=== PATIENT | female | born 1995 | race American Indian/Alaskan Native ===

== ENCOUNTER 2020-09-10 03:19 | Inpatient (IN) | payer MEDICAID ==
[2020-09-10] MEDS ORDERED: ePHEDrine SULFATE 50 MG/1 ML INJ IV PRN (04:29)
[2020-09-10] MEDS ORDERED: LIDOCAINE (2%) 20 MG/1 ML VIAL 20 ML MDV INFILTRATI ONE ×2 (04:29→10:23)
[2020-09-10] MEDS ORDERED: MINERAL OIL 30 ML ORAL LIQD PO PRN (04:29)
[2020-09-10] MEDS ORDERED: TERBUTALINE 1 MG/1 ML INJ SUB-Q PRN (04:29)
[2020-09-10] MEDS ORDERED: AMPICILLIN/NS 2 GM/100 ML 2 GM/100 ML BAG IV ONE (04:29)
--- NOTE | 2020-09-10 04:36 | History and Physical Report ---
History of Present Illness Date of examination: 09/10/20 Date of admission: 09/10/2020 Chief complaint: Contractions History of present illness: 25 year old presents in active labor. Patient received care at [facility] and records are available. LMP 12/02/2019. EDC 09/08/2020 (based on LMP and confirmed by 4 week, 4 day US). EGA 40 weeks, 5 days gestation. significant for the following: maternal obesity and possible alpha- thalassemia trait, elevated hemoglobin A1C (5.7%). labs are as follows: O+, antibody screen negative, rubella immune, HIV nonreactive, RPR nonreactive, hepatitis B surface antigen negative, hepatitis C antibody negative, chlamydia negative, gonorrhea negative, trichomonas negative, 1 hour sugar test 89, AFP negative, GBS negative, pap smear negative, urine culture negative, hemoglobin A1C 5.7%. Past History Past Medical History: other (obesity, hemoglobin A1C in prediabetes range (5.7%)) Past Surgical History: other (cosmetic surgery) MUSEUM GUIDE History: denies: abnormal PAP smear, chlamydia, gonorrhea, hepatitis B, hepatitis C, herpes, HIV, syphilis, trichomonas Family/Genetic History: diabetes, heart disease, other (asthma) Social history: lives with family, full code. denies: smoking, alcohol abuse, prescription drug abuse, IV drug use - Obstetrical History Expected Date of Delivery: 09/08/20 Actual Gestation: 40 Week(s) 2 Day(s) : 1 Para: 0 Hx # Term Pregnancies: 0 Number of Pregnancies: 0 Spontaneous Abortions: 0 Induced : 0 Number of Living Children: 0 Medications and Allergies Allergies Allergy/AdvReac Type Severity Reaction Status Date / Time No Known Allergies Allergy Unverified 02/08/16 15:14 Home Medications Medication Instructions Recorded Confirmed Last Taken Type No Known Home Medications [No 02/08/16 02/08/16 Unknown History Reported Home Medications] Active Meds: Active Medications Ephedrine Sulfate (Ephedrine Sulfate 50 Mg/1 Ml Inj) 10 mg IV Q2M PRN PRN Reason: Hypotension Fentanyl (Fentanyl 100 Mcg/2 Ml Inj) 100 mcg IV Q2H PRN PRN Reason: Pain,Severe (7-10) LABOR PAIN Lactated Ringer's (Lactated Ringers) 1,000 mls @ 125 mls/hr IV DIRECT FLORIDALMA Oxytocin/Sodium Chloride (Pitocin/Ns 30 Unit/500ml) 30 units in 500 mls @ 40 mls/hr IV TITR FLORIDALMA; Protocol Ampicillin Sodium (Ampicillin/Ns 2 Gm/100 Ml) 2 gm in 100 mls @ 100 mls/hr IV ONCE ONE; Protocol Stop: 09/10/20 05:28 Ampicillin Sodium (Ampicillin/Ns 1 Gm/50 Ml) 1 gm in 50 mls @ 100 mls/hr IV Q4H [facility]; Protocol Lidocaine (Lidocaine (2%) 20 Mg/1 Ml Vial 20 Ml Mdv) 20 ml INFILTRATI ONCE ONE Stop: 09/10/20 04:30 Mineral Oil (Mineral Oil 30 Ml Oral Liqd) 30 ml PO QHS PRN PRN Reason: Constipation Terbutaline Sulfate (Terbutaline 1 Mg/1 Ml Inj) 0.25 mg SUB-Q ONCE PRN PRN Reason: Hyperstimulation/Hypertonicity Review of Systems All systems: negative (contractions) - Vital Signs Vital signs: Vital Signs Pulse BP 111 H 132/81 09/10/20 03:34 09/10/20 03:34 Temp Pulse Resp BP Pulse Ox 99.1 F 111 H 20 132/81 97 09/10/20 03:35 09/10/20 04:30 09/10/20 03:35 09/10/20 03:34 09/10/20 04:30 - Physical Exam Abdomen: Positive: normal appearance, soft. Negative: distention, tenderness, guarding, rigidity Genitourinary (Female): Positive: normal external genitalia, normal perenium. Negative: perineal/vulvar lesions Vagina: Positive: normal moisture Uterus: Positive: enlarged. Negative: tender Anus/Rectum: Positive: normal perianal skin Extremities: Positive: normal. Negative: tenderness, edema - Obstetrical FHR: category 1 Uterine Contraction Monitor Mode: External Cervical Dilatation: 6.5 Cervical Effacement Percentage: 90 (BBOW) station: -1 Uterine Contraction Pattern: Regular Uterine Contraction Intensity: Moderate Results All other labs normal. Assessment and Plan A: at 40 weeks, 2 days gestation. Active labor. GBS negative. P: Admit. EFM. Anticipate vaginal .
[2020-09-10] MEDS ORDERED: OXYTOCIN DRIP 30 UNITS/500 ML BAG IV SCH (05:00)
[2020-09-10 05:19] LABS: Hematocrit 40.8 % (30.3-42.9); Mean Corpuscular HGB Conc 32 % (30-34); Mean Corpuscular Volume 76 fl (79-97); Platelet Count 200 K/mm3 (140-440); Red Blood Count 5.39 M/mm3 (3.65-5.03)
[2020-09-10] MEDS: LACTATED RINGERS 1,000 ML IV SCH (05:36)
[2020-09-10] MEDS: fentaNYL 100 MCG/2 ML INJ IV PRN ×3 (05:36→10:27)
[2020-09-10] MEDS ORDERED: AMPICILLIN/NS 1 GM/50 ML 1 GM/50 ML BAG IV SCH (09:00)
[2020-09-10] MEDS ORDERED: WITCH HAZEL/ GLYCERIN PAD TP PRN (11:47)
[2020-09-10] MEDS ORDERED: MAGNESIUM HYDROXIDE (MOM) ORAL LIQD UDC PO PRN (11:47)
[2020-09-10] MEDS ORDERED: HYDROcodone/ACETAMINOPHEN 5-325 MG TAB PO PRN (11:47)
[2020-09-10] MEDS ORDERED: LANOLIN/ZINC/DIMETHICONE (LANSINOH) 7 GM TP PRN (11:47)
--- NOTE | 2020-09-10 11:49 | Procedure Note ---
OB Delivery Note - Delivery Date of Delivery: 09/10/20 Surgeon: BOY DILLON Estimated blood loss: other (350 cc) - Vaginal Delivery presentation: vertex Delivery position: OA Intrapartum events: none Delivery induction: none Delivery monitor: external FHT, external uterine Route of delivery: Delivery placenta: spontaneous Delivery cord: 3 umbilical vessels Episiotomy: none Delivery laceration: 1st degree, 2nd degree Delivery repair: vicryl Anesthesia: local Delivery comments: Spontaneous vaginal delivery at 10:18 of liveborn female infant weighing 7 lb. 11 oz. over 2nd degree perineal laceration with apgars of 6/8. of baby was atraumatic; no nuchal cord. Baby placed skin to skin with mom immediately after delivery and dried, stimulated, and suctioned with bulb syringe. Spontaneous cry and respirations. Baby needed further suctioning so 3 vessel cord was double clamped and cut and baby was taken to radiant warmer for further suctioning and evaluation. Cord blood obtained. Spontaneous delivery of intact placenta and membranes by carlson mechanism at 10:22. EBL 350 cc. Pitocin to IV fluids after delivery of placenta. Fundus firm and midline. 2nd degree perineal laceration and first degree left labial laceration repaired with 2-0 vicryl; Lidocaine local used. No other lacerations noted. Vaginal sweep negative. Sponge and instrument counts correct. Mother and baby stable.
[2020-09-10] MEDS: IBUPROFEN 600 MG TAB PO SCH ×2 (12:55→21:15)
[2020-09-10] MEDS ORDERED: BENZOCAINE/MENTHOL 20/0.5% TOP SPRAY 56 GM TP PRN (14:45)
[2020-09-10] MEDS ORDERED: BENZOCAINE/MENTHOL 20/0.5% TOP SPRAY 56 GM TP ONE (14:46)
[2020-09-10] MEDS: DOCUSATE SODIUM 100 MG CAP PO SCH ×2 (15:50→21:14)
[2020-09-10 16:17] LABS: Hematocrit 35.4 % (30.3-42.9); Hemoglobin 11.2 gm/dl (10.1-14.3)
[2020-09-10] MEDS ORDERED: LACTATED RINGERS 250 ML IV ONE (17:34)
[2020-09-10] MEDS: FERROUS SULFATE 325 MG TAB PO SCH ×2 (18:43→21:14)
[2020-09-10 18:45] LABS: Bilirubin,Urine NEG (Negative); Blood,Urine LG (Negative); Color,Urine Red (Yellow); Mucus,Urine FEW /HPF; Urobilinogen,Urine < 2.0 mg/dL (<2.0)
[2020-09-10 18:47] LABS: RBC,Urine > 182.0 /HPF (0.0-6.0)
[2020-09-10 18:50] LABS: Basophils % (Auto) 0.1 % (0.0-1.8); Eosinophils % (Auto) 0.1 % (0.0-4.3); Hemoglobin 10.4 gm/dl (10.1-14.3); Lymphocytes # (Auto) 2.3 K/mm3 (1.2-5.4); Lymphocytes % (Auto) 13.9 % (13.4-35.0); Mean Corpuscular HGB Conc 32 % (30-34); Mean Corpuscular Volume 76 fl (79-97); Monocytes # (Auto) 1.4 K/mm3 (0.0-0.8); Monocytes % (Auto) 8.4 % (0.0-7.3); Platelet Count 155 K/mm3 (140-440); Red Blood Count 4.32 M/mm3 (3.65-5.03); Red Cell Distribution Width 14.8 % (13.2-15.2)
[2020-09-10] MEDS ORDERED: GENTAMICIN IV SCH (20:15)
[2020-09-10] MEDS ORDERED: SODIUM CHLORIDE 0.9% IV SCH (20:15)
--- NOTE | 2020-09-10 20:22 | Event Note ---
Date: 09/10/20 EKG showed left bundle branch block. Hospitalist and cardiology consults ordered. Spoke with patient about this. She states that earlier in her she has palpitations but not any time recently. Denies any history of heart problems. Ampicillin and Gentamicin ordered for possible chorioamnionitis. Consulted with Dr. Monae re: all of the above.
[2020-09-10] MEDS: AMPICILLIN/NS 2 GM/100 ML 2 GM/100 ML BAG IV SCH (21:14)
[2020-09-11] MEDS: GENTAMICIN/NS 80 MG/100 ML 100 ML IV SCH ×3 (00:09→14:38)
[2020-09-11] MEDS: AMPICILLIN/NS 2 GM/100 ML 2 GM/100 ML BAG IV SCH ×3 (04:18→16:33)
--- NOTE | 2020-09-11 09:57 | History and Physical Report ---
History of Present Illness Date of examination: 09/10/20 Date of admission: 09/10/20 04:29 Chief complaint: Abnormal EKG--IVCD History of present illness: Is asked to consult because of abnormal EKG which showed intraventricular conduction delay. Patient does not have any chest pain or shortness of breath. Patient had no prior EKGs are is aware of prior EKGs. Patient lying in bed and talking well. No symptoms of chest pain shortness of breath cough tenderness etc. No exposure to coronavirus. Past History Social history: lives with family, full code. denies: smoking, alcohol abuse, prescription drug abuse, IV drug use Medications and Allergies Allergies Allergy/AdvReac Type Severity Reaction Status Date / Time No Known Allergies Allergy Unverified 02/08/16 15:14 Home Medications Medication Instructions Recorded Confirmed Last Taken Type No Known Home Medications [No 02/08/16 09/10/20 Unknown History Reported Home Medications] Active Meds: Active Medications Hydrocodone Bitart/Acetaminophen (Hydrocodone/Acetaminophen 5-325 Mg Tab) 2 each PO Q6H PRN PRN Reason: Pain, Moderate (4-6) Last Admin: 09/10/20 15:50 Dose: 2 each Documented by: Benzocaine/Menthol (Benzocaine/Menthol 20/0.5% Top [place] 56 Gm) 1 spray TP TID PRN PRN Reason: Episiotomy Pain Docusate Sodium (Docusate Sodium 100 Mg Cap) 100 mg PO BID [facility] Last Admin: 09/10/20 21:14 Dose: 100 mg Documented by: Ferrous Sulfate (Ferrous Sulfate 325 Mg Tab) 325 mg PO BID [facility] Last Admin: 09/10/20 21:14 Dose: 325 mg Documented by: Ampicillin Sodium (Ampicillin/Ns 2 Gm/100 Ml) 2 gm in 100 mls @ 100 mls/hr IV Q6H [facility]; Protocol Last Admin: 09/11/20 04:18 Dose: 100 mls/hr Documented by: Gentamicin Sulfate/Sodium Chloride (Gentamicin/Ns 80 Mg/100 Ml) 100 mls @ 200 mls/hr IV Q8HR [facility] Last Admin: 09/11/20 06:26 Dose: 200 mls/hr Documented by: Ibuprofen (Ibuprofen 600 Mg Tab) 600 mg PO Q6H [facility] Last Admin: 09/10/20 21:15 Dose: 600 mg Documented by: Magnesium Hydroxide (Magnesium Hydroxide (Mom) Oral Liqd Udc) 30 ml PO HS PRN PRN Reason: Constipation Multi-Ingredient Ointment (Lanolin/Zinc/Dimethicone (Lansinoh) 7 Gm) 1 applic TP PRN PRN PRN Reason: Sore Nipples Multivitamins/Iron/Calcium ( Ymx15-Fr Fumarate-Folic Acid Vit Tab) 1 each PO QDAY FLORIDALMA Sodium Chloride (Sodium Chloride 0.9% 10 Ml Flush Syringe) 10 ml IV PRN NR Stop: 09/11/20 11:59 Witch Yola/Glycerin (Witch Yola/ Glycerin Pad) 1 each TP PRN PRN PRN Reason: Hemorrhoid/cleansing/soothing Exam - Constitutional Vitals: Temp Pulse Resp BP Pulse Ox 97.9 F 104 H 18 124/67 99 09/11/20 08:20 09/11/20 08:20 09/11/20 08:20 09/11/20 08:20 09/11/20 08:20 General appearance: Present: no acute distress, well-nourished - EENT Eyes: Present: PERRL ENT: hearing intact, clear oral mucosa - Neck Neck: Present: supple, normal ROM - Respiratory Respiratory effort: normal Respiratory: bilateral: CTA - Cardiovascular Heart rate: 68 Rhythm: regular Heart Sounds: Present: S1 & S2. Absent: rub, click - Extremities Extremities: pulses symmetrical, No edema Peripheral Pulses: within normal limits - Abdominal General gastrointestinal: Present: soft, non-tender, non-distended, normal bowel sounds Female genitourinary: Present: normal - Integumentary Integumentary: Present: clear, warm, dry - Musculoskeletal Musculoskeletal: gait normal, strength equal bilaterally - Psychiatric Psychiatric: appropriate mood/affect, intact judgment & insight - Neurologic Neurologic: CNII-XII intact, moves all extremities HEART Score - HEART Score History: Slightly suspicious EKG: Non-specific Age: < 45 Risk factors: No known risk factors Troponin: < normal limit HEART Score: 1 - Critical Actions Critical Actions: 0-3 pts:0.9-1.7%risk of adverse cardiac event.Candidate for discharge Results - Labs CBC & Chem 7: 09/10/20 18:34 Labs: Laboratory Last Values WBC 16.2 K/mm3 (4.5-11.0) H 09/10/20 18:34 RBC 4.32 M/mm3 (3.65-5.03) 09/10/20 18:34 Hgb 10.4 gm/dl (10.1-14.3) 09/10/20 18:34 Hct 33.0 % (30.3-42.9) 09/10/20 18:34 MCV 76 fl (79-97) L 09/10/20 18:34 MCH 24 pg (28-32) L 09/10/20 18: MCHC 32 % (30-34) 09/10/20 18:34 RDW 14.8 % (13.2-15.2) 09/10/20 18:34 Plt Count 155 K/mm3 (140-440) 09/10/20 18:34 Lymph % (Auto) 13.9 % (13.4-35.0) 09/10/20 18:34 [place] % (Auto) 8.4 % (0.0-7.3) H 09/10/20 18:34 Eos % (Auto) 0.1 % (0.0-4.3) 09/10/20 18:34 Baso % (Auto) 0.1 % (0.0-1.8) 09/10/20 18:34 Lymph # (Auto) 2.3 K/mm3 (1.2-5.4) 09/10/20 18:34 [place] # (Auto) 1.4 K/mm3 (0.0-0.8) H 09/10/20 18:34 Eos # (Auto) 0.0 K/mm3 (0.0-0.4) 09/10/20 18: Baso # (Auto) 0.0 K/mm3 (0.0-0.1) 09/10/20 18:34 Seg Neutrophils % 77.5 % (40.0-70.0) H 09/10/20: Seg Neutrophils # 12.5 K/mm3 (1.8-7.7) H 09/10/20 18:34 Urine Color Red (Yellow) 09/10/20 18:15 Urine Turbidity Slightly-cloudy (Clear) 09/10/20 18: Urine pH 5.0 (5.0-7.0) 09/10/20 18: Ur Specific [place] 1.018 (1.003-1.030) 09/10/20 18:15 Urine Protein 100 mg/dl mg/dL (Negative) 09/10/20 18:15 Urine Glucose (UA) 50 mg/dL (Negative) 09/10/20 18:15 Urine Ketones Tr mg/dL (Negative) 09/10/20 18:15 Urine Blood Lg (Negative) 09/10/20 18:15 Urine Nitrite Neg (Negative) 09/10/20 18:15 Urine Bilirubin Neg (Negative) 09/10/20 18:15 Urine Urobilinogen < 2.0 mg/dL (<2.0) 09/10/20 18:15 Ur Leukocyte Esterase Mod (Negative) 09/10/20 18:15 Urine WBC (Auto) 64.0 /HPF (0.0-6.0) H 09/10/20 18:15 Urine RBC (Auto) > 182.0 /HPF (0.0-6.0) 09/10/20 18:15 U Epithel Cells (Auto) 2.0 /HPF (0-13.0) 09/10/20 18:15 Urine Mucus Few /HPF 09/10/20 18:15 Coronavirus (PCR) Negative (Negative) 09/10/20 08:30 Blood Type O POSITIVE 09/10/20 04:45 Antibody Screen Negative 09/10/20 04:45 - Imaging and Cardiology EKG: report reviewed (IVCD) Trinh/IV: IV Catheter Type [Right Hand] Peripheral IV Assessment and Plan Advance Directives: Yes (yes) VTE prophylaxis?: Chemical Plan of care discussed with patient/family: Yes - Patient Problems (1) IVCD (intraventricular conduction defect) Current Visit: Yes Status: Chronic Plan to address problem: Possibly chronic and congenital Asked Cardiology for second opinion
[2020-09-11] MEDS: DOCUSATE SODIUM 100 MG CAP PO SCH ×2 (10:10→22:13)
[2020-09-11] MEDS: FERROUS SULFATE 325 MG TAB PO SCH ×2 (10:10→22:13)
[2020-09-11] MEDS: PRENATAL VIT27-FE FUMARATE-FOLIC ACID VIT TAB PO SCH (10:21)
[2020-09-11] MEDS: LACTATED RINGERS 1,000 ML IV SCH (10:22)
--- NOTE | 2020-09-11 11:19 | Consultation ---
History of Present Illness Consult date: 09/11/20 Requesting physician: RYAN GARNETT Consult reason: other (Abnormal EKG) History of present illness: Patient is a 25-year-old with uneventful delivery yesterday. Patient was noted to be tachycardic and had an EKG done. EKG revealed left bundle branch block. Repeat EKG this morning also revealed left bundle branch block. Cardiology is being asked to evaluate the patient in view of the left bundle branch block. Patient reports no prior cardiac history. No significant family history. Fairly healthy 25-year-old with no significant cardiac risk factors. Reports normal with no excessive shortness of breath edema chest pain or palpitations. No history of smoking alcohol or recreational drug use. Past History Past Medical History: No medical history Social history: lives with family, full code. denies: smoking, alcohol abuse, prescription drug abuse, IV drug use Medications and Allergies Allergies Allergy/AdvReac Type Severity Reaction Status Date / Time No Known Allergies Allergy Unverified 02/08/16 15:14 Home Medications Medication Instructions Recorded Confirmed Last Taken Type No Known Home Medications [No 02/08/16 09/10/20 Unknown History Reported Home Medications] Active Meds: Active Medications Hydrocodone Bitart/Acetaminophen (Hydrocodone/Acetaminophen 5-325 Mg Tab) 2 each PO Q6H PRN PRN Reason: Pain, Moderate (4-6) Last Admin: 09/10/20 15:50 Dose: 2 each Documented by: Benzocaine/Menthol (Benzocaine/Menthol 20/0.5% Top [place] 56 Gm) 1 spray TP TID PRN PRN Reason: Episiotomy Pain Docusate Sodium (Docusate Sodium 100 Mg Cap) 100 mg PO BID [facility] Last Admin: 09/11/20 10:10 Dose: 100 mg Documented by: Ferrous Sulfate (Ferrous Sulfate 325 Mg Tab) 325 mg PO BID [facility] Last Admin: 09/11/20 10:10 Dose: 325 mg Documented by: Ampicillin Sodium (Ampicillin/Ns 2 Gm/100 Ml) 2 gm in 100 mls @ 100 mls/hr IV Q6H [facility]; Protocol Last Admin: 09/11/20 10:10 Dose: 100 mls/hr Documented by: Gentamicin Sulfate/Sodium Chloride (Gentamicin/Ns 80 Mg/100 Ml) 100 mls @ 200 mls/hr IV Q8HR [facility] Last Admin: 09/11/20 06:26 Dose: 200 mls/hr Documented by: Ibuprofen (Ibuprofen 600 Mg Tab) 600 mg PO Q6H [facility] Last Admin: 09/10/20 21:15 Dose: 600 mg Documented by: Magnesium Hydroxide (Magnesium Hydroxide (Mom) Oral Liqd Udc) 30 ml PO HS PRN PRN Reason: Constipation Multi-Ingredient Ointment (Lanolin/Zinc/Dimethicone (Lansinoh) 7 Gm) 1 applic TP PRN PRN PRN Reason: Sore Nipples Multivitamins/Iron/Calcium ( Zhm43-To Fumarate-Folic Acid Vit Tab) 1 each PO QDAY [facility] Last Admin: 09/11/20 10:21 Dose: Not Given Documented by: Sodium Chloride (Sodium Chloride 0.9% 10 Ml Flush Syringe) 10 ml IV PRN NR Stop: 09/11/20 11:59 Witch Yola/Glycerin (Witch Yola/ Glycerin Pad) 1 each TP PRN PRN PRN Reason: Hemorrhoid/cleansing/soothing Review of Systems All systems: negative (Except as mentioned in H&P) Physical Examination Vital Signs Pulse BP 111 H 132/81 09/10/20 03:34 09/10/20 03:34 General appearance: obese HEENT: Positive: Normocephaly Neck: Positive: neck supple Cardiac: Positive: Reg Rate and Rhythm Lungs: Positive: clear to auscultation Neuro: Positive: Grossly Intact Abdomen: Positive: Unremarkable Female genitourinary: deferred Skin: Positive: Clear Results 09/10/20 18:34 CBC 09/10/20 09/10/20 Range/Units 15:42 18:34 WBC 16.2 H (4.5-11.0) K/mm3 RBC 4.32 (3.65-5.03) M/mm3 Hgb 11.2 10.4 (10.1-14.3) gm/dl Hct 35.4 33.0 (30.3-42.9) % Plt Count 155 (140-440) K/mm3 Lymph # (Auto) 2.3 (1.2-5.4) K/mm3 [place] # (Auto) 1.4 H (0.0-0.8) K/mm3 Eos # (Auto) 0.0 (0.0-0.4) K/mm3 Baso # (Auto) 0.0 (0.0-0.1) K/mm3 EKG interpretations - Telemetry EKG Rhythm: Sinus Rhythm (Left bundle branch block) Assessment and Plan Impression: 1. Status post uneventful delivery 2. Tachycardia in the setting of childbirth significantly improved 3. Abnormal EKG new left bundle branch block patient completely asymptomatic Plan: Likely left bundle branch block is old. Patient has no cardiac risk factors. Will proceed with 2D echo to evaluate for peripartum cardiomyopathy. If echo is normal patient can be discharged home from cardiac standpoint and outpatient follow-up
[2020-09-11] MEDS: IBUPROFEN 600 MG TAB PO SCH ×4 (15:39→23:25)
--- NOTE | 2020-09-11 16:30 | Progress Note ---
Assessment and Plan A: day 1 S/P . Anemia. Abnormal EKG. P: Patient was seen by hospitalist and flying squad salesperson today. Supplement with iron. Anticipate possible discharge home tomorrow if patient continues to do well. Subjective - Subjective Date of service: 09/11/20 Principal diagnosis: day 1 S/P Interval history: Was seen by hospitalist and cardiolgist. Patient reports: appetite normal, voiding normally, pain well controlled, flatus, ambulating normally, no dizzy ambulation, no nauseated [place]: doing well Objective - Vital Signs Latest vital signs: Vital Signs Temp Pulse Resp BP BP Pulse Ox 09/11/20 08:20 97.9 F 104 H 18 124/67 99 09/11/20 00:34 98.4 F 102 H 20 96/55 98 09/10/20 21:15 20 09/10/20 20:52 98.7 F 110 H 20 109/70 99 Intake and Output 09/11/20 09/11/20 09/11/20 07:59 15:59 23:59 Intake Total 660 Output Total 800 Balance 660 -800 Intake: IV 300 AMPICILLIN/NS 2 GM/100 ML 100 2 gm In 100 ml @ 100 mls /hr IV Q6H [facility] Rx#: [id number] Gentamicin/Ns 80 mg/100 200 ml 100 ml @ 200 mls/hr IV Q8HR [facility] Rx#:[id number] Intake, Free Water 360 Output: Urine 800 Void 800 Other: Total, Output Amount 800 # Voids Void 1 - Exam Abdomen: Present: normal appearance, soft. Absent: distention, tenderness, guarding, rigidity Uterus: Present: normal, firm, fundal height below umbilicus. Absent: bogginess, tenderness Extremities: Present: normal. Absent: tenderness, edema - Labs Labs: Abnormal lab results 09/10/20 09/10/20 Range/Units 18:15 18:34 WBC 16.2 H (4.5-11.0) K/mm3 MCV 76 L (79-97) fl MCH 24 L (28-32) pg [place] % (Auto) 8.4 H (0.0-7.3) % [place] # (Auto) 1.4 H (0.0-0.8) K/mm3 Seg Neutrophils % 77.5 H (40.0-70.0) % Seg Neutrophils # 12.5 H (1.8-7.7) K/mm3 Urine WBC (Auto) 64.0 H (0.0-6.0) /HPF
--- NOTE | 2020-09-11 19:46 | Progress Note ---
Assessment and Plan - Patient Problems (1) IVCD (intraventricular conduction defect) Current Visit: Yes Status: Chronic Plan to address problem: Possibly chronic Cardiology consult appreciated Echo pending Subjective Date of service: 09/11/20 Principal diagnosis: day 1 S/P Interval history: Asymptomatic Objective - Constitutional Vitals: Vital Signs - 12hr 09/11/20 09/11/20 08:20 16:45 Temperature 97.9 F 97.9 F Pulse Rate 104 H 92 H Respiratory 18 18 Rate Blood Pressure 124/67 109/70 [Left] O2 Sat by Pulse 99 98 Oximetry General appearance: Present: no acute distress, well-nourished - EENT Eyes: PERRL, EOM intact ENT: hearing intact, clear oral mucosa Ears: bilateral: normal - Neck Neck: supple, normal ROM - Respiratory Respiratory effort: normal Respiratory: bilateral: CTA - Breasts Breasts: normal - Cardiovascular Heart rate: 78 Rhythm: regular Heart Sounds: Present: S1 & S2. Absent: gallop, rub Extremities: pulses intact, No edema, normal color, Full ROM - Gastrointestinal General gastrointestinal: Present: soft, non-tender, non-distended, normal bowel sounds - Genitourinary Female genitourinary: normal - Integumentary Integumentary: clear, warm, dry - Musculoskeletal Musculoskeletal: 1, strength equal bilaterally - Neurologic Neurologic: moves all extremities - Psychiatric Psychiatric: memory intact, appropriate mood/affect, intact judgment & insight - Labs CBC & Chem 7: 09/10/20 18:34 HEART Score - HEART Score EKG: Non-specific Age: < 45 Risk factors: No known risk factors Troponin: < normal limit - Critical Actions Critical Actions: 0-3 pts:0.9-1.7%risk of adverse cardiac event.Candidate for discharge
[2020-09-11 20:08] LABS: Alanine Aminotransferase 12 units/L (7-56); Albumin 3.2 g/dL (3.9-5); Blood Urea Nitrogen 8 mg/dL (7-17); Calcium 8.8 mg/dL (8.4-10.2); Hemolysis Index 4
[2020-09-11 20:18] LABS: BUN/Creatinine Ratio 11
[2020-09-12] MEDS: IBUPROFEN 600 MG TAB PO SCH ×2 (05:54→15:54)
--- NOTE | 2020-09-12 07:19 | Progress Note ---
Assessment and Plan A: day 2 S/P . Anemia. P: Discharge patient home today. Discussed with patient discharge instructions and warning signs. Advised patient to continue taking her vitamins and iron supplements at home. Advised patient to avoid intercourse, lifting, housework. Advised patient to follow up with cardiology in 2 weeks as recommended by hospitalist. Advised patient to follow up at [facility] in 6 weeks for exam. Patient voiced understanding of all instructions. Patient seen by José Miguel Bro CNM. Subjective - Subjective Date of service: 09/19/20 Principal diagnosis: day 2 S/P Interval history: Was cleared for discharge by hospitalist and by Dr. Monae. Patient denies chest pain, shortness of breath, cough, leg pain, heavy bleeding, or any other problems. Patient reports: appetite normal, voiding normally, pain well controlled, flatus, ambulating normally, no dizzy ambulation, no nauseated : doing well Objective - Vital Signs Latest vital signs: Vital Signs Temp Pulse Resp BP BP Pulse Ox 09/12/20 00:53 98.1 F 95 H 20 107/70 100 09/11/20 16:45 97.9 F 92 H 18 109/70 98 09/11/20 08:20 97.9 F 104 H 18 124/67 99 Intake and Output 09/11/20 09/11/20 09/12/20 15:59 23:59 07:59 Intake Total 100 480 Output Total 800 Balance -700 480 Intake: IV 100 AMPICILLIN/NS 2 GM/100 ML 100 2 gm In 100 ml @ 100 mls /hr IV Q6H [facility] Rx#: [id number] Oral 480 Output: Urine 800 Void 800 Other: Total, Intake Amount 480 Total, Output Amount 800 # Voids Void 1 - Exam Cardiovascular: Present: Regular rate Lungs: Present: Clear to auscultation Abdomen: Present: normal appearance, soft. Absent: distention, tenderness, guarding, rigidity Uterus: Present: normal, firm, fundal height below umbilicus. Absent: bogginess, tenderness Extremities: Present: normal. Absent: tenderness, edema - Labs Labs: Abnormal lab results 09/11/20 Range/Units 19:09 Alkaline Phosphatase 131 H (35-129) units/L Total Protein 5.5 L (6.3-8.2) g/dL Albumin 3.2 L (3.9-5) g/dL
--- NOTE | 2020-09-12 07:23 | Discharge Summary ---
Providers - Providers Date of Admission: 09/10/20 04:29 Date of discharge: 09/12/20 Attending physician: CHARITO COHEN 09/10/20 20:27 Consult to Cardiology [CONS] Routine Consulting Provider: Reason For Exam: tachycardia; abnormal EKG; 09/10/20 22:29 Consult to Physician [CONS] Urgent Comment: Consulting Provider: RYAN GARNETT Physician Instructions: Reason For Exam: abnormal ekg, tachycardia, 09/11/20 08:00 Consult to Cardiology [CONS] Routine Consulting Provider: FAREED ABBASI Reason For Exam: IVCD Primary care physician: CHARITO COHEN Hospitalization Reason for admission: active labor Delivery: Laceration: 1st degree, 2nd degree Other procedures: none complications: other (Abnormal EKG (seen by hospitalist and process lead and will also follow up outpatient)) Discharge diagnosis: IUP at term delivered baby: female Pertinent studies: Labs Hospital course: Stable hospital course Condition at discharge: Good Disposition: DC-01 TO HOME OR SELFCARE - Discharge Diagnoses (1) Term delivered Status: Acute (2) Anemia Status: Acute Plan - Provider Discharge Summary Activity: routine, no sex for 6 weeks, no heavy lifting 4 weeks, no strenuous exercise Diet: routine Instructions: routine Additional instructions: Continue taking your vitamins and iron supplements at home. Follow up with process lead in 2 weeks. Follow up at [facility] in 6 weeks. Call your doctor immediately for: * Fever > 100.5 * Heavy vaginal bleeding ( >1 pad per hour) * Severe persistent headache * Shortness of breath * Reddened, hot, painful area to leg or breast - Follow up plan Follow up: CHARITO COHEN MD [Primary Care Provider] - 6 Weeks
[2020-09-12] MEDS ORDERED: SPIRONOLACTONE 25 MG TAB PO SCH (12:00)
[2020-09-12] MEDS ORDERED: ASPIRIN EC 81 MG TAB PO SCH (12:00)
[2020-09-12] MEDS ORDERED: carvediloL 3.125 MG TAB PO SCH (12:00)
[2020-09-12] MEDS ORDERED: LISINOPRIL 5 MG TAB PO SCH (12:00)
--- NOTE | 2020-09-12 12:07 | Progress Note ---
Assessment and Plan - Patient Problems (1) Peripartum cardiomyopathy Current Visit: Yes Status: Acute Plan to address problem: 25-year-old woman who just completed her first , EKG was done due to the presence of persistent sinus tachycardia. ECG revealed a left bundle branch block of uncertain chronicity. Echocardiogram shows a dilated cardiomyopathy with severe left ventricular systolic ejection fraction of 30 to 35%. Patient reports no hypertension, shortness of breath or lower extremity edema during the . She reports no prior cardiac history. Findings consistent with new systolic heart failure due to likely prepartum ca rdiomyopathy. Recommendations: 1. Lisinopril 2.5 mg daily, carvedilol 3.125 mg twice daily, spironolactone 25 mg daily, and aspirin 81 mg daily. 2. Patient is stable for discharge on these medications, cardiac outpatient follow-up in 1 week. 3. Patient advised in the presence of the nurse and her significant other who is at bedside, that breast-feeding is not recommended while she is taking the heart failure medications listed. 4. Patient is also strongly recommended against planning any future pregnancies in the setting of diagnosis of peripartum cardiomyopathy. Subjective Date of service: 09/12/20 Principal diagnosis: day 2 S/P Interval history: The patient is comfortable on bedrest, no chest pain, no shortness of breath, no lower extremity edema. Vital signs show a heart rate of 92, sinus rhythm, blood pressure 110 systolic. Echocardiogram shows a severe cardiomyopathy with left ventricular ejection fraction 30 to 35%. Objective Vital Signs Temp Pulse Resp BP BP Pulse Ox 09/12/20 08:37 98.0 F 95 H 20 114/71 100 09/12/20 00:53 98.1 F 95 H 20 107/70 100 09/11/20 16:45 97.9 F 92 H 18 109/70 98 - Physical Examination General: No Apparent Distress HEENT: Positive: Normocephaly Neck: Positive: neck supple Cardiac: Positive: Reg Rate and Rhythm Neuro: Positive: Grossly Intact Skin: Positive: Clear Extremities: Absent: edema - Labs and Meds Cardiac Enzymes 09/11/20 Range/Units 19:09 AST 21 (5-40) units/L Comprehensive Metabolic Panel 09/11/20 Range/Units 19:09 Sodium 139 (137-145) mmol/L Potassium 4.0 (3.6-5.0) mmol/L Chloride 105.5 (98-107) mmol/L Carbon Dioxide 24 (22-30) mmol/L BUN 8 (7-17) mg/dL Creatinine 0.7 (0.6-1.2) mg/dL Glucose 84 (65-100) mg/dL Calcium 8.8 (8.4-10.2) mg/dL AST 21 (5-40) units/L ALT 12 (7-56) units/L Alkaline Phosphatase 131 H (35-129) units/L Total Protein 5.5 L (6.3-8.2) g/dL Albumin 3.2 L (3.9-5) g/dL - Imaging and Cardiology EKG: report reviewed (IVCD)
[2020-09-12] MEDS: DOCUSATE SODIUM 100 MG CAP PO SCH (12:17)
[2020-09-12] MEDS: PRENATAL VIT27-FE FUMARATE-FOLIC ACID VIT TAB PO SCH (12:18)
[2020-09-12] MEDS: FERROUS SULFATE 325 MG TAB PO SCH (12:18)
[2020-09-12 13:46] VITALS: BP 105/74
== END 2020-09-12 17:30 | disposition home or self-care (01) | DRG 774 ==
LOC: TRG 03:19 → APU 03:24 → LD 04:29 → TRG 04:29 → OB 12:44
PROVIDERS: ADMIT Obstetrics & Gynecology; ATTEND Obstetrics & Gynecology
PROC: 10E0XZZ Delivery of Products of Conception, External Approach (ICD-10-PCS; principal; 2020-09-10)
PROC: 0KQM0ZZ Repair Perineum Muscle, Open Approach (ICD-10-PCS; 2020-09-10)
PROC: 0UQMXZZ Repair Vulva, External Approach (ICD-10-PCS; 2020-09-10)
DX: O48.0 Post-term pregnancy (principal); O90.3 Peripartum cardiomyopathy; O75.9 Complication of labor and delivery, unspecified; I45.89 Other specified conduction disorders; O36.8330 Maternal care for abnormalities of the fetal heart rate or rhythm, third trimester, not applicable or unspecified; Z37.0 Single live birth; Z3A.40 40 weeks gestation of pregnancy; O70.1 Second degree perineal laceration during delivery; O70.0 First degree perineal laceration during delivery; Z20.822 Contact with and (suspected) exposure to COVID-19
CPT/HCPCS: 36415; 80053; 81001; 85014; 85018; 85025; 85027; 86850; 86900; 86901; 87086; 93005; 93306; G0378; A6250; J0290; J1580; J2590; J3010; J7120; U0003